=== PATIENT | male | born 1980 | race Hispanic/Latino ===

== ENCOUNTER 2019-05-26 01:45 | Emergency (ER) | payer OTHER ==
[2019-05-26] MEDS ORDERED: ACETAMINOPHEN 325 MG TAB ONE (02:35)
== END 2019-05-26 03:34 ==
LOC: EDH 01:45
DX: S00.83XA Contusion of other part of head, initial encounter (principal); F41.9 Anxiety disorder, unspecified; Z72.0 Tobacco use; X58.XXXA Exposure to other specified factors, initial encounter; Y93.89 Activity, other specified; Y92.89 Other specified places as the place of occurrence of the external cause; Y99.8 Other external cause status
CPT/HCPCS: 70450